=== PATIENT | male | born 1980 | race Caucasian/White ===

== ENCOUNTER 2016-05-05 05:36 | Day surgery (SDC) | payer OTHER ==
[~2016-05-05] VITALS: Ht 180.3 cm; Wt 88.6 kg
[~2016-05-05 05:36] MED LIST: CARI350 PO; OXYC10 PO; OXYC1TAB66 PO
[2016-05-05] MEDS ORDERED: SODIUM CHLORIDE 0.9% 1,000 ML IV ONE (06:00)
[2016-05-05] MEDS ORDERED: BUPIVACAINE HCL/PF 0.5% 10 ML VIAL ONE (07:12)
[2016-05-05] MEDS ORDERED: BUPIVACAINE HCL/PF 0.75% 10 ML VIAL ONE (07:12)
[2016-05-05] MEDS ORDERED: SODIUM BICARBONATE 50 MEQ/50 ML VIAL ONE (07:13)
[2016-05-05] MEDS ORDERED: IOHEXOL 300 MG/ML 10 ML VIAL ONE (07:13)
[2016-05-05] MEDS ORDERED: LIDOCAINE HCL/PF 1% 30 ML VIAL ONE (07:13)
[2016-05-05] MEDS ORDERED: BUPIVACAINE HCL/PF 0.25% 30 ML VIAL ONE (07:13)
[2016-05-05] MEDS ORDERED: LIDOCAINE HCL/PF 2% 5 ML VIAL ONE (07:13)
[2016-05-05] MEDS ORDERED: TRIAMCINOLONE ACETONIDE 40 MG/ML VIAL ONE (07:14)
[2016-05-05] MEDS ORDERED: MIDAZOLAM HCL 2 MG/2 ML VIAL ONE (07:16)
[2016-05-05] MEDS ORDERED: FentaNYL CITRATE-PF 100 MCG/2 ML VIAL ONE (07:16)
[2016-05-05 07:40] VITALS: BP 121/80
[2016-05-05] MEDS ORDERED: MIDAZOLAM HCL 2 MG/2 ML VIAL IVP ONE (07:55)
[2016-05-05] MEDS ORDERED: FentaNYL CITRATE-PF 100 MCG/2 ML VIAL IVP ONE (07:55)
[2016-05-05] MEDS ORDERED: LIDOCAINE 1% 30 ML/SOD BICARB 8.4% 4 ML SQ ONE (07:56)
[2016-05-05] MEDS ORDERED: TRIAMCINOLONE ACETONIDE 40 MG/ML VIAL IARTIC ONE ×2 (07:58)
[2016-05-05] MEDS ORDERED: IOHEXOL 300 MG/ML 10 ML VIAL IARTIC ONE (07:58)
[2016-05-05] MEDS ORDERED: LIDOCAINE HCL/PF 2% 5 ML VIAL IARTIC ONE (07:58)
[2016-05-05 08:15] VITALS: BP 114/70
[2016-05-11] MEDS ORDERED: SODIUM CHLORIDE 0.9% 1,000 ML IV ONE (08:54)
== END 2016-05-05 09:55 | disposition home or self-care (01) ==
LOC: SDS 05:36
PROVIDERS: ATTEND Specialist
DX: M47.816 Spondylosis without myelopathy or radiculopathy, lumbar region (principal); M19.90 Unspecified osteoarthritis, unspecified site; M54.5 Low back pain; G89.29 Other chronic pain; F17.200 Nicotine dependence, unspecified, uncomplicated; Z72.89 Other problems related to lifestyle; Z98.890 Other specified postprocedural states
CPT/HCPCS: 64493; 64494; J2250; J3010; J3301; J3490 ×3; Q9967

== ENCOUNTER 2016-09-24 05:55 | Day surgery (SDC) | payer OTHER ==
[~2016-09-24] VITALS: Ht 180.3 cm; Wt 88.6 kg
[~2016-09-24 05:55] MED LIST changes: +OXYC-42 PO; -OXYC1TAB66 PO
[2016-09-24] MEDS ORDERED: SODIUM CHLORIDE 0.9% 1,000 ML IV ONE ×2 (06:00)
[2016-09-24] MEDS ORDERED: BUPIVACAINE HCL/PF 0.75% 10 ML VIAL ONE (07:42)
[2016-09-24] MEDS ORDERED: TRIAMCINOLONE ACETONIDE 40 MG/ML VIAL ONE (07:42)
[2016-09-24] MEDS ORDERED: LIDOCAINE HCL/PF 2% 5 ML VIAL ONE (07:42)
[2016-09-24] MEDS ORDERED: MIDAZOLAM HCL 2 MG/2 ML VIAL ONE ×2 (07:42→08:53)
[2016-09-24] MEDS ORDERED: LIDOCAINE HCL/PF 1% 30 ML VIAL ONE (07:42)
[2016-09-24] MEDS ORDERED: FentaNYL CITRATE-PF 100 MCG/2 ML VIAL ONE ×2 (07:42→08:53)
[2016-09-24 07:50] VITALS: BP 119/76
[2016-09-24] MEDS ORDERED: MIDAZOLAM HCL 2 MG/2 ML VIAL IVP ONE ×2 (08:15→09:00)
[2016-09-24] MEDS ORDERED: TRIAMCINOLONE ACETONIDE 40 MG/ML VIAL IARTIC ONE (08:15)
[2016-09-24] MEDS ORDERED: FentaNYL CITRATE-PF 100 MCG/2 ML VIAL IVP ONE ×3 (08:15→09:00)
[2016-09-24] MEDS ORDERED: BUPIVACAINE HCL/PF 0.75% 10 ML VIAL IARTIC ONE (08:15)
[2016-09-24] MEDS ORDERED: LIDOCAINE HCL/PF 2% 5 ML VIAL IARTIC ONE (08:15)
[2016-09-24 09:36] VITALS: BP 132/88
[2016-09-24] MEDS ORDERED: HYDROmorphone 2 MG/ML SYRINGE IVP ONE (10:00)
[2016-09-24] MEDS ORDERED: HYDROmorphone 2 MG/ML SYRINGE ONE (10:01)
== END 2016-09-24 11:05 | disposition home or self-care (01) ==
LOC: SDS 05:55
PROVIDERS: ATTEND Specialist
DX: M47.27 Other spondylosis with radiculopathy, lumbosacral region (principal); G89.29 Other chronic pain; M54.5 Low back pain; M54.30 Sciatica, unspecified side; F17.200 Nicotine dependence, unspecified, uncomplicated; Z98.890 Other specified postprocedural states
CPT/HCPCS: 64635; 64636; J1170; J2250; J3010; J3301; J3490 ×3; J7030